=== PATIENT | female | born 1995 | race Caucasian/White ===

== ENCOUNTER 2019-07-03 20:01 | Emergency (ER) | payer OTHER ==
[2019-07-03 20:19] VITALS: BP 126/78; PULSE 89; TEMP 98.1; BMI 38.0
--- NOTE | 2019-07-03 20:27 | PDOC ---
Rapid Medical Evaluation Time Seen by Provider: 07/03/19 20:15 Medical Evaluation: Allergies Allergy/AdvReac Type Severity Reaction Status Date / Time No Known Allergies Allergy Verified 04/26/17 12:32 Vital Signs Temp Pulse Resp BP Pulse Ox 98.1 F 89 19 126/78 99 07/03/19 20:15 07/03/19 20:15 07/03/19 20:15 07/03/19 20:15 07/03/19 20:15 07/03/19 20:26 CC: swollen finger with [address] PE: excoriation present under rings. Orders: nothing Patient is to proceed to ER for further evaluation. Discharge Disposition - Diagnosis Foreign body finger - Referrals - Patient Instructions - Post Discharge Activity
--- NOTE | 2019-07-03 21:47 | PDOC ---
History of Present Illness - General Chief Complaint: Injury Stated Complaint: RING FINGER INJURY Time Seen by Provider: 07/03/19 20:15 - History of Present Illness Initial Comments: 07/03/19 21:44 23 y/o F presents for ring removal from a swollen finger x1 day Past History - Past Medical History Allergies/Adverse Reactions: Allergies Allergy/AdvReac Type Severity Reaction Status Date / Time No Known Allergies Allergy Verified 04/26/17 12:32 Home Medications: Ambulatory Orders Vit 93/Iron Fum/Folic [ Formula Tablet] 1 tab PO DAILY Synthroid 75 mcg PO DAILY 04/26/17 metFORMIN HCL [Metformin HCl] 500 mg PO BID 04/26/17 - Psycho Social/Smoking Cessation Hx Smoking History: Never smoked Review of Systems - Review of Systems Musculoskeletal: Yes: See HPI *Physical Exam - Vital Signs Last Vital Signs Temp Pulse Resp BP Pulse Ox 98.1 F 89 19 126/78 99 07/03/19 20:15 07/03/19 20:15 07/03/19 20:15 07/03/19 20:15 07/03/19 20:15 - Physical Exam Comments: 07/03/19 21:44 L 4th finger swollen ring unable to be removed. With sheers right was removed without complication Medical Decision Making - Medical Decision Making 07/03/19 21:45 Will have pt f/u with hand surgery., Discharge - Discharge Information Problems reviewed: Yes Clinical Impression/Diagnosis: Foreign body finger Condition: Improved Disposition: HOME - Admission No - Follow up/Referral Referrals: Padmini King MD [Primary Care Provider] - John Ward MD [Staff Physician] - - Patient Discharge Instructions Additional Instructions: Return to the emergency room should you have further issues. Please without fail , follow up with hand surgery in 1-2 days for further evaluation and treatment options - Post Discharge Activity
== END 2019-07-03 21:58 | disposition home or self-care (01) ==
LOC: JERFT 20:01
DX: S60.445A External constriction of left ring finger, initial encounter (principal); W49.04XA Ring or other jewelry causing external constriction, initial encounter; Y93.89 Activity, other specified; Y92.038 Other place in apartment as the place of occurrence of the external cause; Y99.8 Other external cause status
CPT/HCPCS: 99281-25